=== PATIENT | female | born 1965 | race Caucasian/White ===

== ENCOUNTER 2016-11-17 07:08 | Day surgery (SDC) | payer BC, OTHER ==
[~2016-11-17 07:08] MED LIST: Lactated Ringers 1,000 ML IV SCH; Sodium Chloride 0.9% 10 ML Syringe FLUSH PRN
--- NOTE | 2016-11-17 08:44 | PCM.HP ---
H&P History of Present Illness - General Date of Service: 11/17/16 Admit Problem/Dx: Admission Diagnosis/Problem Admission Diagnosis/Problem Colonoscopy Source of Information: Patient, Old Records History Limitations: Reports: No Limitations - Related Data Allergies/Adverse Reactions: Allergies Allergy/AdvReac Type Severity Reaction Status Date / Time Sulfa (Sulfonamide Allergy Mild Rash Verified 11/17/16 07:51 Antibiotics) lisinopril AdvReac Mild Swelling Verified 11/17/16 07:51 Home Medications: Home Meds Atenolol [Tenormin] 50 mg PO DAILY 11/14/16 [History] Cholecalciferol (Vitamin D3) [Vitamin D3] 1,000 unit PO DAILY 11/14/16 [History] Ethinyl Estradiol/Drospirenone [Mireille 28] 1 each PO DAILY 11/14/16 [History] Fexofenadine [Guillermina] 180 mg PO DAILY 11/14/16 [History] Fluticasone Propionate [Flonase Allergy Relief] 2 spray NS BEDTIME PRN 11/14/16 [History] HCTZ/Triamterene [Maxzide 25-37.5 MG] 1 each PO DAILY 11/14/16 [History] Losartan [Cozaar] 25 mg PO DAILY 11/14/16 [History] Lutein 10 mg PO DAILY 11/14/16 [History] Multivitamin/Iron/Folic Acid [Centrum Adults Tablet] 1 each PO DAILY 11/14/16 [ History] Polyethylene Glycol 3350 [MiraLAX] 17 gm PO DAILY 11/14/16 [History] Pseudoephedrine HCl [Pseudoephedrine ER] 120 mg PO BID 11/14/16 [History] Ranitidine HCl [Zantac] 300 mg PO DAILY 11/14/16 [History] Acetaminophen [Tylenol Extra Strength] 1,000 mg PO ASDIRECTED PRN 11/17/16 [ History] Past Medical History HEENT History: Reports: Allergic Rhinitis, Impaired Vision Cardiovascular History: Reports: Hypertension Respiratory History: Reports: None Gastrointestinal History: Reports: GERD Genitourinary History: Reports: None [employer] History: Reports: Musculoskeletal History: Reports: None Neurological History: Reports: None Psychiatric History: Reports: None Endocrine/Metabolic History: Reports: None Hematologic History: Reports: None Immunologic History: Reports: None Oncologic (Cancer) History: Reports: None Dermatologic History: Reports: None - Past Surgical History Head Surgeries/Procedures: Reports: None HEENT Surgical History: Reports: None Cardiovascular Surgical History: Reports: Vascular Surgery Respiratory Surgical History: Reports: None GI Surgical History: Reports: Hernia, Inguinal Female Surgical History: Reports: Section Endocrine Surgical History: Reports: None Neurological Surgical History: Reports: None Musculoskeletal Surgical History: Reports: None Oncologic Surgical History: Reports: None Dermatological Surgical History: Reports: None Social & Family History - Tobacco Use Smoking Status *Q: Never Smoker - Caffeine Use Caffeine Use: Reports: Coffee, Soda - Alcohol Use Days Per Week of Alcohol Use: 4 Number of Drinks Per Day: 2 Total Drinks Per Week: 8 - Recreational Drug Use Recreational Drug Use: No H&P Review of Systems - Review of Systems: Review Of Systems: ROS reveals no pertinent complaints other than HPI. Exam - Exam Exam: See Below - Vital Signs Vital Signs: Last Vital Signs Temp 98.5 F 11/17/16 07:36 Pulse 78 11/17/16 07:36 Resp 15 11/17/16 07:36 BP 118/80 11/17/16 07:36 Pulse Ox 98 11/17/16 07:36 Weight: 67.132 kg - Exam General: Alert, Oriented Lungs: Clear to Auscultation, Normal Respiratory Effort Cardiovascular: Regular Rate, Regular Rhythm - Patient Data Lab Results Last 24 hrs: Laboratory Results - last 24 hr 11/17/16 Range/Units 07:27 Urine HCG, Qual Negative (NEGATIVE) *Q Meaningful Use (ADM) - VTE *Q VTE Criteria *Q: - Stroke *Q Stroke Criteria *Q: - AMI *Q AMI Criteria *Q: Problem List Initiated/Reviewed/Updated: Yes Orders Last 24hrs: Active Orders 24 hr Category Date Time Status Patient Status [ADT] Routine ADT 11/17/16 07:00 Ordered Patient to Empty Bladder [RC] ASDIRECTED Care 11/17/16 07:00 Active Verify Patient Consent Obtain [RC] ASDIRECTED Care 11/17/16 07:00 Active Lactated Ringers [Ringers, Lactated] 1,000 ml Med 11/17/16 07:00 Active IV ASDIRECTED Sodium Chloride 0.9% [Saline Flush] Med 11/17/16 07:00 Active 10 ml FLUSH ASDIRECTED PRN Peripheral IV Insertion Adult [OM.PC] Routine Oth 11/17/16 07:00 Ordered Medication Orders Lactated Ringer's (Ringers, Lactated) 1,000 mls @ 125 mls/hr IV ASDIRECTED [facility] Last Admin: 11/17/16 08:04 Dose: 125 mls/hr Sodium Chloride (Saline Flush) 10 ml FLUSH ASDIRECTED PRN PRN Reason: Keep Vein Open Assessment/Plan Comment:: FH Colon Polyps Ok toproceed with colonoscopy; risks and complications discussed, consent obtained
[2016-11-17] MEDS ORDERED: Midazolam 1 MG/ML 2 ML SDV IV ONE (08:50)
[2016-11-17] MEDS ORDERED: Propofol 200 MG/20 ML SDV IV ONE (08:50)
--- NOTE | 2016-11-17 09:07 | PCM.OPNOTE ---
- General Post-Op/Procedure Note Date of Surgery/Procedure: 11/17/16 Operative Procedure(s): Colonoscopy Findings: Normal Pre Op Diagnosis: FH Colon Polyps Post-Op Diagnosis: Same Anesthesia Technique: MAC Primary Surgeon: Carson Valentine Anesthesia Provider: Gwen Jasso Complications: None Condition: Good
[2016-11-17 09:57] VITALS: BP 114/73
--- NOTE | 2016-11-17 16:59 | OR ---
DATE OF OPERATION: 11/17/2016 SURGEON: Carson Valentine MD PREOPERATIVE DIAGNOSIS: Family history of colon polyps. POSTOPERATIVE DIAGNOSIS: Normal colonoscopy. PROCEDURE: Colonoscopy. ANESTHESIA: IV sedation. DESCRIPTION OF PROCEDURE: The patient was brought to the procedure room where she was placed on her left side and IV sedation administered. Digital rectal exam was performed which was normal. The colonoscope was inserted and advanced to the level of the cecum without difficulty. Cecal position was confirmed by identifying the appendiceal lumen and ileocecal valve. The prep was good and surfaces were well visualized. Upon withdrawing the scope, the ascending, transverse, and descending colon were normal in appearance. The sigmoid colon and rectum were normal. Retroflexion was normal. Air was removed and the scope withdrawn. The patient tolerated the procedure well and returned to recovery in stable condition. Recommend routine colon screening again in 5 years. /[id number] KRYSTIAN/ANDRÉS
== END 2016-11-17 10:19 | disposition home or self-care (01) ==
LOC: FB.SDS 07:08
PROVIDERS: ATTEND Surgery
DX: Z12.11 Encounter for screening for malignant neoplasm of colon (principal); I10 Essential (primary) hypertension; K21.9 Gastro-esophageal reflux disease without esophagitis; Z83.71 Family history of colonic polyps; Z88.2 Allergy status to sulfonamides; Z88.8 Allergy status to other drugs, medicaments and biological substances; Z98.890 Other specified postprocedural states; Z79.899 Other long term (current) drug therapy
CPT/HCPCS: 45378; 81025; J2250; J2704; J7120

== ENCOUNTER → 2021-12-31 | Day surgery (SDC) | payer BC, OTHER ==
[~2021-12-31] MED LIST changes: +Lactated Ringers 1,000 ML IV ONE; -Lactated Ringers 1,000 ML IV SCH; +Midazolam 1 MG/ML 2 ML SDV IV ONE; +Propofol 200 MG/20 ML SDV IV ONE; +Simethicone Drops 40 MG/0.6 ML 30 ML Bottle PO ONE; -Sodium Chloride 0.9% 10 ML Syringe FLUSH PRN
== END ==
LOC: FB.SDS 07:24
PROVIDERS: ATTEND Surgery
DX: Z12.11 Encounter for screening for malignant neoplasm of colon (principal); D12.3 Benign neoplasm of transverse colon; Z83.71 Family history of colonic polyps; Z88.2 Allergy status to sulfonamides; Z88.5 Allergy status to narcotic agent; Z79.899 Other long term (current) drug therapy
CPT/HCPCS: 00811-QZ; 88305; A9270-GY; J2250; J2704; J7120